=== PATIENT | male | born 1995 | race Hispanic/Latino ===

== ENCOUNTER 2021-04-04 07:57 | Emergency (ER) | payer SELFPAY ==
[~2021-04-04] VITALS: Ht 167.6 cm; Wt 60.0 kg
[2021-04-04] MEDS ORDERED: ZPAK PO ×2 (08:53→10:10)
[2021-04-04] MEDS ORDERED: CHERATUSSIN PO (08:53)
[2021-04-04 09:13] VITALS: BP 103/62
== END 2021-04-04 09:30 | disposition home or self-care (01) | DRG 153 ==
LOC: ED 07:57
DX: J06.9 Acute upper respiratory infection, unspecified (principal); Z20.822 Contact with and (suspected) exposure to COVID-19